=== PATIENT | female | born 1990 | race Caucasian/White ===

== ENCOUNTER 2023-06-01 20:55 | Emergency (ER) | payer OTHER ==
[2023-06-01 21:42] VITALS: RESP 18; TEMP 98.3
--- NOTE | 2023-06-01 23:27 | ED ---
Lower Extremity Injury HPI - General Chief Complaint: Extremity Injury, Lower Stated Complaint: ankle pain Time Seen by Provider: 06/01/23 22:59 Source: patient, EMS, RN notes reviewed Mode of arrival: EMS Limitations: no limitations - History of Present Illness Initial Comments: Patient is a 33-year-old female presenting to the emergency room via EMS from [facility] for further evaluation of left foot pain in which she has been in a brace for for some time after causing significant nerve damage after laying on the foot for a prolonged period of time approximately one month ago. After that injury she did spend some time in a retirement is currently in rehab for substance abuse at [facility]. She reports rolling her ankle multiple times today and having pain in the ankle despite utilizing her. In addition to her substance abuse history and history regarding her left foot as indicated above she has a past medical history significant for cocaine-induced myocardial infarction. - Related Data Allergies Allergy/AdvReac Type Severity Reaction Status Date / Time azithromycin [From Zithromax] Allergy Anaphylaxis Verified 06/01/23 21:42 Penicillins Allergy Anaphylaxis Verified 06/01/23 21:42 quetiapine [From Seroquel] AdvReac Unknown Verified 06/01/23 21:42 Review of Systems ROS Statement: Those systems with pertinent positive or pertinent negative responses have been documented in the HPI. ROS Other: All systems not noted in ROS Statement are negative. Past Medical History Past Medical History: Myocardial Infarction (IN) History of Any Multi-Drug Resistant Organisms: MRSA Date of last positivie culture/infection: 2018 MDRO Source:: Finger Past Surgical History: Unable to Obtain Past Psychological History: Bipolar Smoking Status: Current every day smoker, Vaper Past Alcohol Use History: Occasional Past Drug Use History: Cocaine, IV Drug Use General Exam Limitations: no limitations General appearance: alert, in no apparent distress Head exam: Present: atraumatic, normocephalic, normal inspection Eye exam: Present: normal appearance, PERRL, EOMI. Absent: scleral icterus, conjunctival injection, periorbital swelling ENT exam: Present: normal exam, mucous membranes moist Neck exam: Present: normal inspection Respiratory exam: Absent: respiratory distress, accessory muscle use Cardiovascular Exam: Present: regular rate Left Foot/Toe exam: Present: tenderness, swelling. Absent: full ROM (Left foot drop), abrasion, laceration, ecchymosis, deformity, crepitus, dislocation, erythema, amputation, puncture wound, foreign body, calcaneal tenderness, tenderness at base of 5th metatarsal, nail avulsion, subungual hematoma Neurovascular tendon exam: Present: no vascular compromise Gait: not tested/not observed Back exam: Present: normal inspection Neurological exam: Present: alert, oriented X3, CN II-XII intact Psychiatric exam: Present: normal affect, normal mood Skin exam: Present: warm, dry, intact, normal color. Absent: rash Course Vital Signs 06/01/23 21:39 Temperature 98.3 F Pulse Rate 94 Respiratory 18 Rate Blood Pressure 120/75 O2 Sat by Pulse 98 Oximetry Medical Decision Making - Medical Decision Making Was pt. sent in by a medical professional or institution (, PA, LANG PATH THERAPIST, urgent care, hospital, or retirement...) When possible be specific @ -Yes, sent from [facility] Did you speak to anyone other than the patient for history (EMS, parent, family, police, friend...)? What history was obtained from this source @ -No Did you review nursing and triage notes (agree or disagree)? Why? @ -I reviewed and agree with nursing and triage notes Were old charts reviewed (outside hosp., previous admission, EMS record, old EKG, old radiological studies, urgent care reports/EKG's, retirement records)? Report findings @ -No old charts were reviewed Differential Diagnosis (chest pain, altered mental status, abdominal pain women, abdominal pain men, vaginal bleeding, weakness, fever, dyspnea, syncope, headache, dizziness, GI bleed, back pain, seizure, CVA, palpatations, mental health, musculoskeletal)? @ -Differential Musculoskeletal Muscular strain, contusion, ligament sprain, fracture, arthritis, septic arthritis, bursitis, cellulitis, muscle spasm, nerve compression, DVT, arterial occlusion, herpes zoster, electrolyte abnormality, tumor.... This is not meant to be in all inclusive list EKG interpreted by me (3pts min.). @ -None done X-rays interpreted by me (1pt min.). @ -X-ray left foot: No acute fracture or dislocation. CT interpreted by me (1pt min.). @ -None done U/S interpreted by me (1pt. min.). @ -None done What testing was considered but not performed or refused? (CT, X-rays, U/S, labs)? Why? @ -None What meds were considered but not given or refused? Why? @ -None Did you discuss the management of the patient with other professionals (professionals i.e. , PA, LANG PATH THERAPIST, lab, RT, psych nurse, oncology social worker, enamel machine operator, teacher, engineering officer, lining caser)? Give summary @ -No Was smoking cessation discussed for >3mins.? @ -No Was critical care preformed (if so, how long)? @ -No Were there social determinants of health that impacted care today? How? (Homelessness, low income, unemployed, alcoholism, drug addiction, transportation, low edu. Level, literacy, decrease access to med. care, usp, rehab)? @ -No Was there de-escalation of care discussed even if they declined (Discuss DNR or withdrawal of care, Hospice)? DNR status @ -No What co-morbidities impacted this encounter? (DM, HTN, Smoking, COPD, CAD, Cancer, CVA, ARF, Chemo, Hep., AIDS, mental health diagnosis, sleep apnea, morbid obesity)? @ -None Was patient admitted / discharged? Hospital course, mention meds given and route, prescriptions, significant lab abnormalities, going to OR and other pertinent info. @ -33-year-old female presenting to the emergency room via EMS from [facility] for further evaluation of left foot pain in which she has been in a brace for for some time after causing significant nerve damage after laying on the foot for a prolonged period of time approximately one month ago. X-ray of the left foot obtained by triaging provider which demonstrates no acute osseous pathology. No indication for any further diagnostic imaging or laboratory studies. Patient requesting a new AV obese however advised that those are not available here in the emergency room and that she needs to follow-up with her outpatient landing support specialist for a new brace. Questions and concerns answered. Return parameters emergency room discussed. Will discharge home/back to [facility] rehabilitation services with continued follow-up with her landing support specialist in regards to her chronic left foot pain. Undiagnosed new problem with uncertain prognosis? @ -No Drug Therapy requiring intensive monitoring for toxicity (Heparin, Nitro, Insulin, Cardizem)? @ -No Were any procedures done? @ -No Diagnosis/symptom? @ -Left foot pain Acute, or Chronic, or Acute on Chronic? @ -Acute on chronic Uncomplicated (without systemic symptoms) or Complicated (systemic symptoms)? @ -Uncomplicated Side effects of treatment? @ -No Exacerbation, Progression, or Severe Exacerbation? @ -No Poses a threat to life or bodily function? How? (Chest pain, [place], [place], pneumonia, PE, COPD, DKA, ARF, appy, cholecystitis, CVA, Diverticulitis, Homicidal, Suicidal, threat to staff... and all critical care pts) @ -No Case discussed with Dr. Pham. - Radiology Data Radiology results: image reviewed Disposition Clinical Impression: Left foot pain Disposition: HOME SELF-CARE Condition: Stable Instructions (If sedation given, give patient instructions): Metatarsalgia (DC) Additional Instructions: Please continue to utilize her brace for your left foot. Please follow-up with your landing support specialist for a new brace as needed. Please return to the Emergency Department if symptoms worsen or any other concerns. Is patient prescribed a controlled substance at d/c from ED?: No Referrals: None,Stated [Primary Care Provider] - 1-2 days Time of Disposition: 23:23
[2023-06-02 00:29] VITALS: BP 121/82; PULSE 79
--- NOTE | 2023-06-02 00:33 | XR ---
EXAM: XR Left Foot Complete, 3 or More Views CLINICAL HISTORY: ITS.REASON XR Reason: pain TECHNIQUE: Frontal, lateral and oblique views of the left foot. COMPARISON: No relevant prior studies available. FINDINGS: Bones/joints: No acute fracture or dislocation. Soft tissues: Unremarkable. No radiopaque foreign body. IMPRESSION: 1. No acute osseous findings. 2. Hallux valgus is suggested, but this would be better evaluated on weightbearing views.
== END 2023-06-02 00:28 | disposition home or self-care (01) ==
LOC: EC 20:55
DX: M79.672 Pain in left foot (principal); I25.2 Old myocardial infarction; F17.290 Nicotine dependence, other tobacco product, uncomplicated; F14.90 Cocaine use, unspecified, uncomplicated; Z88.0 Allergy status to penicillin; Z88.8 Allergy status to other drugs, medicaments and biological substances; X50.1XXA Overexertion from prolonged static or awkward postures, initial encounter
CPT/HCPCS: 99284